=== PATIENT | female | born 1940 | race Caucasian/White ===

== ENCOUNTER 2018-09-12 15:18 | Observation (INO) | payer MEDICARE, MEDICAID ==
[~2018-09-12] VITALS: Ht 167.6 cm; Wt 58.8 kg
--- NOTE | ~2018-09-12 | DS ---
PATIENT:AYSHA MAURO :36 MEDICAL RECORD: [id number] DISCHARGE SUMMARY ADMISSION DATE: 09/12/18 DISCHARGE DATE: DISCHARGE DIAGNOSES: 1. Acute coronary syndrome, non-Q-wave myocardial infarction. 2. Coronary artery disease. 3. Percutaneous transluminal coronary angioplasty and stent to the right coronary artery this admission. HOSPITAL COURSE: Mrs. Mauro presents with unstable anginal symptomatology. Troponin was elevated [place]; however, troponin was normal here. She was sent here. She underwent cardiac catheterization revealing significant disease of the RCA, underwent successful PTCA and stent of the RCA, did not have the addition of a beta-crystal secondary to bradycardia and hypotension, was discharged home with the addition of aspirin and Plavix to her medical regimen. [facility] with [facility] 1 month. TRANSINT:[id number] Voice Confirmation ID: [id number] DOCUMENT ID: [id number] ENDER STEINBEGR MD CC: [id number] DICTATION DATE: 09/14/18 1125 INTERNET ECOMMERCE SPECIALIST: 09/15/18 0016 ADM IN [place] [id number] [place] [id number]
--- NOTE | ~2018-09-12 | OP ---
PATIENT NAME: AYSHA GODWIN MEDICAL RECORD: [id number] :38 LOCATION:D.M2 D.2116 ADMISSION DATE:09/12/18 SURGEON: ENDER STEINBERG MD DATE OF OPERATION: 09/14/2018 PROCEDURES: 1. PTCA stent RCA. 2. Left heart catheterization. 3. Selective coronary angiography. 4. Left ventriculogram. INDICATION: Acute coronary syndrome, unstable angina, elevated troponin. PROCEDURE IN DETAIL: After informed consent was obtained and after a detailed description of the risks, benefits as well as alternative therapies, the patient elected to proceed with angiogram and angioplasty. The right femoral area was prepped and draped in normal sterile fashion. Right femoral artery was cannulated via modified Seldinger technique with placement of 6-Kiswahili sheath. All catheters exchanged through this sheath. FINDINGS: Left ventriculogram was performed in standard 30-degree GOLDSTEIN view, reveals good cardiac wall motion, ejection fraction 65%. SELECTIVE CORONARY ANGIOGRAPHY: 1. Left main has no significant angiographic disease. 2. Left anterior descending has moderate irregularities, but no flow-limiting stenosis. 3. The left circumflex has moderate irregularities, but no flow-limiting stenosis. 4. Right coronary artery has 80% stenosis proximally, 90% to 95% stenosis in the mid vessel. PTCA STENT OF THE RCA: Stents used were 3.5 x 18 and 3.5 x 12, both Cobra stents. Result was 0% residual stenosis. OVERALL IMPRESSION: Successful percutaneous transluminal coronary angioplasty stent of the right coronary artery going from 90% to 95% initial stenosis to 0% residual. TRANSINT:[id number] Voice Confirmation ID: [id number] DOCUMENT ID: [id number] ENDER STEINBERG MD CC: [id number] DICTATION DATE: 09/14/18 1124 SPECIMEN BOSS: 09/14/18 1139 ADM IN [place] [id number] [place] [address]
--- NOTE | ~2018-09-12 | HEMODYNAMI ---
PATIENT:AYSHA GODWIN MEDICAL RECORD: [id number] : 36 [facility]ATION[facility] D.2116 [id number] ADMISSION DATE: 09/12/18 Generatedon:09/14/201811:32 Patient name: AYSHA GODWIN Patient #: [id number] SSN: [id number] : 1940 Date of study: 09/14/2018 Page: Of Hemodynamic Procedure Report Patient Data Patient Demographics Procedure consent was obtained First Name: AYSHA Gender: Female Last Name: TATO : 1940 Patient #: [id number] Age: 77 year(s) Race: SSN: [id number] Additional ID: [id number] Contact details [address]: [address] [place] [address] State: [place] City: [place] Zip code: [address] Admission Admission Data Admission Date: 09/12/2018 Admission Time: 16:34 Arrival Date: 09/12/2018 Arrival Time: 16:34 Admit Source: Emergency Insurance Payor: Medicare, department Medicaid Room #: D.2116 Lab Results Lab Result Date: 09/14/2018 Lab Result Time: 0:00 Biochemistry Name Units Result Min Max BUN mg/dl 19 --(----)*- 7 18 Creatinine mg/dl 0.7 --(*---)-- 0.6 1.3 CBC Name Units Result Min Max Hemoglobin g/dl 11.4 *-(----)-- 13.5 17.5 Procedure Procedure Types Cath Procedure Diagnostic Procedure LHC LHC w/Coronaries Sedation Charges Moderate Sedation up to 30 minutes PCI Procedure Coronary Stent Coronary Stent Initial Procedure Description Procedure Date Procedure Date: 09/14/2018 Procedure Start Time: 11:06 Procedure End Time: 11:23 Procedure Staff Name Function Minh Self MD Performing Physician Dagmar Srivastava RT Monitor Epifanio Youngblood RT Scrub Vero Jolley RT Scrub Jace Torres RN Nurse Indication Crescendo angina Procedure Data Cath Procedure Fluoroscopy Diagnostic fluoroscopy Total fluoroscopy Time: 4.4 time: 4.4 min min Diagnostic fluoroscopy Total fluoroscopy dose: 727 dose: 727 mGy mGy Contrast Material Contrast Material Type Amount (ml) Isovue 300 111 Entry Location Entry Primary Successful Side Size Upsize Upsize Entry Closure Succes sful Closure Location (Fr) 1 (Fr) 2 (Fr) Remarks Device Remarks Femoral Right 5 Fr 6 Fr Exoseal artery Short Estimated blood loss: 5 ml Diagnostic catheters Device Type Used For End Catheter Placement MULTIPACK Pigtail 5 Fr LV Angiography catheter MULTIPACK JL 4.0 5Fr Left Coronary catheter Angiography MULTIPACK 3DRC 5Fr Right Coronary catheter Angiography Procedure Complications No complications Procedure Medications Medication Administration Route Dosage Oxygen etCO2 Nasal cannula 2 l/min Heparin Flush Bag added to field 2 bags (1000units/500ml NS) 0.9% NaCl I.V. 100 ml/hr Lidocaine 2% added to field 20 Fentanyl I.V. 50 mcg Versed I.V. 1 mg Heparin Bolus I.V. 4000 units Integrilin (Bolus I.V. 5 ml 2mg/ml) Integrilin (Bolus wasted 5 ml 2mg/ml) Plavix P.O. 600 mg Hemodynamics Rest HGB: 11.4 (g/dl) Heart Rate: 50 (bpm) Pressure Samples Time Site Value (mmHg) Purpose Heart Use Rate(bpm) 11:09 LV -4/-8,-7 Snapshot 30 Snapshots Pre Cath Intra NCS Post Cath Vital Signs Time Heart Resp SPO2 etCO2 NIBP (mmHg) Rhythm Pain Sedation Rate (ipm) (%) (mmHg) Status Level (bpm) 11:02:15 51 16 99 0 163/56(116) NSR 0 (11) 10(A) , No pain 11:06:33 49 17 99 0 129/47(101) NSR 0 (11) 9(A) , No pain 11:10:47 50 17 97 0 118/47(77) NSR 0 (11) 9(A) , No pain 11:15:52 50 16 98 0 127/45(87) NSR 0 (11) 9(A) , No pain 11:20:04 56 17 98 0 119/43(89) NSR 0 (11) 9(A) , No pain 11:26:37 55 17 98 0 Measuring NSR 0 (11) 10(A) , No pain 11:26:40 55 17 98 0 135/55(83) NSR 0 (11) 10(A) , No pain 11:31:36 100 0 166/58(133) NSR 0 (11) 10(A) , No pain Medications Time Medication Route Dose Verified Delivered Reason Notes Effectiveness by by 11:00:23 Oxygen etCO2 2 Minh Mccormick Per physician Nasal l/min Clair Torres RN cannula 11:00:31 Heparin Flush added 2 Minh Mccormick used for Bag to bags Clair Torres RN procedure (1000units/500ml field NS) 11:00:41 0.9% NaCl I.V. 100 Minh Mccormick Per physician ml/hr Clair Torres RN 11:00:54 Lidocaine 2% added 20ml Minh Mccormick for local to vial Clair Torres RN anesthetic field 11:03:30 Fentanyl I.V. 50 Minh Mccormick for sedation mcg Clair Torres RN 11:03:36 Versed I.V. 1 mg Minh Mccormick for sedation Clair Torres RN 11:15:57 Heparin Bolus I.V. 4000 Minh Mccormick for units Clair Torres RN anticoagulation 11:16:57 Integrilin I.V. 5 ml Minh Mccormick for (Bolus 2mg/ml) Clair Torres RN anticoagulation 11:17:00 Integrilin wasted 5 ml Minh Mccormick for (Bolus 2mg/ml) Clair Torres RN anticoagulation 11:22:04 Plavix P.O. 600 Minh Mccormick for mg Clair Torres RN antiplatelet therapy Procedure Log Time Note 10:30:28 Epifanio Youngblood RT(R) sent for patient. Start room use. 10:40:36 Informed consent obtained and on chart 10:41:49 Admit Source: Emergency department 10:42:00 Arrival Date: 09/12/2018 4:34:00 PM 10:42:08 Insurance Payor : Medicare, Medicaid 10:44:42 Lab Result : BUN 19 mg/dl 10:44:42 Lab Result : Hemoglobin 11.4 g/dl 10:44:42 Lab Result : Creatinine 0.7 mg/dl 10:44:47 Diagnostic Cath Status : Elective 10:45:17 Indication : Crescendo angina 10:46:16 ACC Patient presents with Non-STEMI CCS Anginal Class 2--Slight limitation of ordinary activity. 10:46:22 ACCPatient has been prescribed/administered the following anti-anginal medication within the last 2 weeks: Long-Acting Nitrates, NAILA-Inhibitor 10:46:25 Procedure Status Urgent Heart Cath (IP). 10:46:34 Time tracking: Regular hours (M-F 7:00 - 5:00) 10:46:38 Plan of Care:Hemodynamics will remain stable., Cardiac rhythm will remain stable., Comfort level will be maintained., Respiratory function will remain adequate., Patient/ family verbilizes understanding of procedure., Procedure tolerated without complication., Recovers from procedure without complications.. 10:46:43 Patient received from Med II to [facility] 2 Alert and oriented. Tansferred to table in Supine position. 10:46:45 Warm blankets applied, and lori hugger turned on for patient comfort. 10:46:45 Correct patient and procedure confirmed by team. 10:46:46 ECG and BP/O2 sat monitors applied to patient. 10:51:33 Full Disclosure recording started 10:51:36 H&P Date Dictated: 09/14/2018 New H&P dictated by physician.. 10:51:37 Pre-procedure instructions explained to patient. 10:51:37 Pre-op teaching completed and patient verbalized understanding. 10:51:43 Family unavailable. 10:51:46 Patient NPO since Midnight. 10:51:50 Is the patient allergic to Iodine/contrast media? No. 10:51:52 Was the patient premedicated? No 10:53:20 Is patient on blood thinner?No 10:53:23 Patient diabetic? No. 10:53:27 Previous problem with sedation/anesthesia? No ? 10:53:28 Snore? No 10:53:29 Sleep apnea? No 10:53:31 Deviated septum? No 10:53:31 Opens mouth fully? Yes 10:53:32 Sticks out tongue? Yes 10:53:40 Airway obstruction? No ? 10:53:44 Dentures? Yes in tight 10:53:56 Pre procedure: right dorsailis pedis pulse Doppler 10:53:59 Pre procedure: left dorsailis pedis pulse Doppler 10:54:03 Patient pain scale 0/10 ?. 10:54:12 Lab results completed and on chart. 10:54:47 Right groin area was prepped with chlora-prep and draped in sterile fashion 10:54:48 Alarms reviewed by R. N. 10:54:49 Sharps counted by scrub and verified by R.N. 10:55:02 Physician arrived 10:55:54 IV right antecubital D/C'd due to infiltration. 10:57:40 [facility] with a 20 gauge IV catheter with 0.9% NaCl at KVO. 10:57:42 Physician arrived 10:57:43 --------ALL STOP TIME OUT------ 10:57:43 Final Timeout: patient, procedure, and site verified with staff and physician. All members of the team are in agreement. 10:57:46 Right groin site verified by team. 10:57:50 Fire Safety Assessment: A--An alcohol-based skin anteseptic being used preoperatively., C--Open oxygen or nitrous oxide is being used., D--An ESU, laser, or fiber-optic light is being used. 10:57:53 Physical assessment completed. ASA score P 2 - A patient with mild systemic disease as per Minh Self MD. 10:59:09 2) 60-89 Mildly reduced kidney function, and other findings (as for stage 1) point to kidney disease. 10:59:14 Maximum allowable contrast dose (3.7 X eGFR X 0.75)235 ml. 10:59:26 Sedation plan: IV Moderate Sedation Medication:Versed, Fentanyl 10:59:31 Use device set Femoral Dx 10:59:32 ACIST Syringe (65794) opened to sterile field. 10:59:32 Bag Decanter (2001S) opened to sterile field. 10:59:33 Medline Cath Pack ([id number]) opened to sterile field. 10:59:34 ACIST Hand Control (32036) opened to sterile field. 10:59:34 ACIST Manifold (47728) opened to sterile field. 10:59:35 DIAGNOSTIC Multipack 5Fr catheter set (DC7151) opened to sterile field. 10:59:35 Tegaderm 4 x 4 (1626W) opened to sterile field. 10:59:37 EMERALD Guide Wire (630-135) opened to sterile field. 10:59:38 SHEATH 5FR [place] (HPY231) opened to sterile field. 11:00:23 Oxygen 2 l/min etCO2 Nasal cannula was administered by Jace Torres RN; Per physician; 11:00:31 Heparin Flush Bag (1000units/500ml NS) 2 bags added to field was administered by Jace Torres RN; used for procedure; 11:00:41 0.9% NaCl 100 ml/hr I.V. was administered by Jace Torres RN; Per physician; 11:00:54 Lidocaine 2% 20ml vial added to field was administered by Jace Torres RN; for local anesthetic; 11:01:06 Vital chart was started 11:03:30 Fentanyl 50 mcg I.V. was administered by Jace Torres RN; for sedation; 11:03:36 Versed 1 mg I.V. was administered by Jace Torres RN; for sedation; 11:05:49 Procedure started. 11:06:23 Local anesthetic to right femoral artery with Lidocaine 2% by Minh Self MD.INITIAL ACCESS ONLY 11:06:33 A 5 Fr sheath was inserted into the Right Femoral artery 11:07:55 Baseline sample Acquired. 11:08:09 A MULTIPACK Pigtail 5 Fr catheter was advanced over the wire and used for LV Angiography. 11:09:30 LV hemodynamics recorded. 11:09:32 LV gram done using GOLDSTEIN 11:09:35 Injector settings: Ml/sec: 5, Volume: 15, 11:09:42 EF : 65 % 11:09:53 Catheter removed. 11:09:58 A MULTIPACK JL 4.0 5Fr catheter was advanced over the wire and used for Left Coronary Angiography. 11:10:35 LCA angiography performed. 11:10:38 Injector settings: Ml/sec: 3, Volume: 6, 11:11:18 Catheter removed. 11:11:31 A MULTIPACK 3DRC 5Fr catheter was advanced over the wire and used for Right Coronary Angiography. 11:11:47 RCA angiography performed. 11:11:50 Injector settings: Ml/sec: 3, Volume: 6, 11:12:08 Catheter removed. 11:13:53 GUIDE 6FR AR 2.0 SH catheter (SE1CV6YY) opened to sterile field. 11:13:54 SHEATH 6FR [place] (FZJ608) opened to sterile field. 11:13:55 INFLATOR Merit BasixCompak (ZH7198) opened to sterile field. 11:13:56 CHOICE PT Extra Support 182cm wire ([id number]) opened to sterile field. 11:14:00 Pre PCI Site: [place] mRCA has 90% stenosis. 11:14:00 Post PCI Site: [place] pRCA has 80% stenosis. 11:14:03 Proceeding to intervention. 11:14:04 ACC Pre-intervention GLENNA Flow is 3. 11:14:15 Sheath upsized to a 6 Fr Short. 11:14:25 6 Fr ar 2 sh guide catheter was inserted over the wire 11:14:30 choice pt wire advanced. 11:14:32 Wire advanced across lesion. 11:15:57 Heparin Bolus 4000 units I.V. was administered by Jace Torres RN; for anticoagulation; 11:15:58 ACT drawn and resulted at 384 seconds. (normal therapeutic range 180-240 seconds). 11:16:23 Place stent Inflation Number: 1 A COBRA RX 3.5 X 18 Stent was prepped and advanced across the Mid RCA 90. The stent was deployed at 15 SUJATA for 0:10 (min:sec) . 11:16:28 Stent catheter was removed intact over wire. 11:16:57 Integrilin (Bolus 2mg/ml) 5 ml I.V. was administered by Jace Torres RN; for anticoagulation; 11:17:00 Integrilin (Bolus 2mg/ml) 5 ml wasted was administered by Jace Torres RN; for anticoagulation; 11:17:48 Place stent Inflation Number: 1 A COBRA RX 3.5 X 12 Stent was prepped and advanced across the Prox RCA 80. The stent was deployed at 15 SUJATA for 0:10 (min:sec) . 11:18:38 ACC Post-intervention GLENNA Flow is 3. 11:19:29 Stent catheter was removed intact over wire. 11:19:29 Wire removed. 11:19:30 Guide catheter removed. 11:19:37 EXOSEAL 6Fr (EX600) opened to sterile field. 11:19:47 Sheath removed intact; hemostasis achieved with Exoseal to the Right Femoral artery. 11:19:49 Procedure ended.(Physican Out) 11:22:01 Fluoroscopy time 04.40 minutes. 11:22:04 Plavix 600 mg P.O. was administered by Jace Torres RN; for antiplatelet therapy; 11:22:08 Flurop Dose total: 727 11:22:08 Fluoroscopy dose: 727 mGy 11:22:14 Dose Area Product 18478 mGy/cm. 11:22:18 Contrast amount:Isovue 300 111ml. 11:22:20 Sharps counted by scrub and verified by R.N. 11::22 Insertion/operative site no bleeding no hematoma. 11:22:25 Post-op/insertion site Right Femoral artery dressed using a 4 x 4 and Tegaderm. 11:22:28 Post right femoral artery:stable 11:22:29 Post Procedure Pulses reassessed and unchanged 11:22:32 Post procedure rhythm: unchanged. 11:22:36 Estimated blood loss: 5 ml 11::38 Post procedure instruction explained to patient.Patient verbalizes understanding. 11:22:38 Patient needs reinforcement of post procedure teaching. 11:23:00 Procedure type changed to Cath procedure, Diagnostic procedure, LHC, LHC w/Coronaries, Sedation Charges, Moderate Sedation up to 30 minutes, PCI procedure, Coronary Stent, Coronary Stent Initial 11:23:01 Procedure and supply charges have been captured, reviewed, submitted and are correct. 11:23:05 Procedure Complication : No complications 11:23:08 Vital chart was stopped 11:23:08 See physician's report for complete and final results. 11:23:11 Report given to [facility]. 11:23:14 Patient transfered to [facility] with Stretcher. 11:23:17 Procedure ended. 11:23:17 Full Disclosure recording stopped 11:23:24 ACC-PCI Only Patient was given prescriptions, or instructed by Minh Self MD to start/continue the following medications upon discharge: Plavix 11:23:26 End room use (Document Last) 11:24:48 Vital chart was started 11:28:34 FEMSTOP Gold (I82563) opened to sterile field. 11:32:19 Vital chart was stopped Intervention Summary Intervention Notes Time ActionType Lesion and Equipment Action# Pressure Duration Attributes Used 11:16:23 Place stent Mid RCA COBRA RX 1 15 00:10 3.5 X 18 Stent 11:17:48 Place stent Prox RCA COBRA RX 1 15 00:10 3.5 X 12 Stent Device Usage Item Name Manufacture Quantity Catalog Number Hospital Part Current Minimal Lot# / Charge Number Stock Stock Serial# Code ACIST Syringe Acist 1 05433 026867 036094 451256 20 (72927) Medical Systems Inc Bag Decanter Microtek 1 115620 89928 942760 5 () Medical Inc. Medline Cath Medline 1 [id number] 351612 44572 931174 5 Pack ([id number]) ACIST Hand Acist 1 35733 634588 115046 159860 5 Control Medical (51094) Systems Inc ACIST Manifold Acist 1 93588 217326 175403 972928 5 (21180) Medical Systems Inc DIAGNOSTIC Cardinal 1 BQ9604 381492 40275 182212 30 Multipack 5Fr Health catheter set (FH1585) Tegaderm 4 x 4 3M 1 1626W 516696 477799 059699 5 (1626W) EMERALD Guide Cardinal 1 502-455 456037 334429 342331 5 Wire (502-455) Health SHEATH 5FR Terumo 1 YON752 776274 924170 027372 5 [place] (EUG671) MULTIPACK Cardinal 1 688903 5 Pigtail 5 Fr Health catheter MULTIPACK JL Cardinal 1 606799 5 4.0 5Fr Health catheter MULTIPACK 3DRC Cardinal 1 695597 5 5Fr catheter Health GUIDE 6FR AR Medtronic 1 [id number] 713321 21726 162098 1 2.0 SH catheter (XX3VA2UX) SHEATH 6FR Terumo 1 WGZ031 826184 462122 574523 40 [place] (SPK940) INFLATOR Merit Merit 1 LG3560 322936 000378 421400 15 Sunrise Atelier (EV2454) CHOICE PT Brashear 1 [id number] 918319 023979 624921 5 Extra Support Scientific 182cm wire ([id number]) COBRA RX 3.5 X Celonova 1 591371 [id number] 1151685 1 9 [id number] 18 stent Biosciences () COBRA RX 3.5 X Celonova 1 032189 [id number] 718109 4 [id number] 12 stent Biosciences ([id number]) EXOSEAL 6Fr Cardinal 1 EX600 329886 506902 932404 10 (EX600) Health FEMSTOP Gold [facility] [place] 1 Z34288 795869 011903 519398 5 ([id number]) Signature Audit [place] Stage Time Signature Unsigned Intra-Procedure 09/14/2018 Dagmar Srivastava 11:32:15 AM RT(R) Signatures Performing Physician : Signature : Minh Self MD Date : Time : Monitor : Dagmar Srivastava RT Signature : Date : Time : Nurse : Jace Torres RN Signature : Date : Time : [facility] [address] [place] [id number]
--- NOTE | 2018-09-12 16:58 | NUR ---
BARBER CATH IN PLACE PATROL SUPERVISOR
[2018-09-12 17:10] VITALS: BP 174/52
--- NOTE | 2018-09-12 17:37 | NUR ---
TRANSFER FROM ER BY STRETCHER. OREINTED TO ROOM. CALL LIGHT IN REACH. WILL CONT. PLAN OF CARE.
[2018-09-12] MEDS ORDERED: LISINOPRIL20 MG PO (17:42)
[2018-09-12] MEDS ORDERED: OMEPRAZOLE20 M1 PO (17:42)
[2018-09-12] MEDS ORDERED: XANAX0.5 MG PO (17:43)
[2018-09-12] MEDS ORDERED: ALBUTEROL2.5 MG/3 M INH (17:44)
[2018-09-12 17:59] VITALS: BP 174/52; Ht 167.6 cm; Wt 58.8 kg
[2018-09-12 18:52] LABS: CKMB 1.3 U/L (0.0-3.6); CREATINE KINASE 47 UL (21-215)
[2018-09-12 18:53] LABS: TROPONIN-I < 0.017 ng/mL (0.000-0.060)
[2018-09-12 20:00] VITALS: BP 161/53
--- NOTE | 2018-09-12 21:55 | NUR ---
INITIAL ROUNDS COMPLETED AT 1910 HRS. PT DENIED ANY DISCOMFORT. ASSESSMENT COMPELTED AT 1950 HRS. VSS. PT ALERT AND ORIENTED TO PERSON, PLACE AND TIME. SIERRA. IV TO RAC SL. O2 3LNC. LUNGS DIMINISHED IN BASES BILAT. MAE. CORDOBAEY DRAINING YELLOW URINE. PM MED GIVEN. SR UP X4 PER PT'S INSISTANCE. EXPLAINED TO PT IT IS CONSIDERED A RESTRAINT. PT THEN STATED SHE WANTS ALL 4 RAILS BECAUSE IT MAKES HER FEEL SAFER. PT CURRENTLY RESTING WITH EYES CLOSED. RESP EVEN AND REGULAR. CALL LIGHT WITHIN REACH AND DOOTR OPEN PER REQUEST.
[2018-09-13] VITALS: BP 146/86
--- NOTE | 2018-09-13 00:35 | NUR ---
PT RESTING WITH EYES CLOSED. RESP EVEN AND REGULAR. SR UP X2,CALL LIGHT WITHIN REACH.
[2018-09-13 01:18] LABS: CKMB 1.4 U/L (0.0-3.6); CREATINE KINASE 45 UL (21-215)
[2018-09-13 01:19] LABS: TROPONIN-I < 0.017 ng/mL (0.000-0.060)
--- NOTE | 2018-09-13 02:05 | NUR ---
PT RESTING WITH EYES CLOSED. RESP EVEN AND REGULAR. SR UP X2, CALL LIGHT WITHIN REACH.
[2018-09-13 04:00] VITALS: BP 110/41
--- NOTE | 2018-09-13 04:32 | NUR ---
PT RESTING WITH EYES CLOSED. RESP EVEN AND REGULAR. SR UP X2, CALL LIGHT WITHIN REACH AND FAMILY AT BEDSIDE.
--- NOTE | 2018-09-13 05:51 | NUR ---
VSS THROUGHOUT NIGHT. SB PER CM. NO C/O CP SINCE MORPHINE ADMINISTRATION. NEEDS MET; WILL CONTINUE TO MONITOR.
--- NOTE | 2018-09-13 07:15 | NUR ---
RECEIVED PT IN BED EYES CLOSED RESP UNLABORED SKIN W/D /COLOOR WNL NAD NOTED WILL CONTINUE TO MONITOR
[2018-09-13 07:38] LABS: CKMB 0.5 U/L (0.0-3.6); CREATINE KINASE 18 UL (21-215)
[2018-09-13 07:39] LABS: TROPONIN-I < 0.017 ng/mL (0.000-0.060)
[2018-09-13 09:42] VITALS: BP 101/65
[2018-09-13] MEDS ORDERED: CELEXA20 MG PO (16:31)
[2018-09-13 20:00] VITALS: BP 191/55
[2018-09-14] VITALS: BP 164/52
[2018-09-14 04:00] VITALS: BP 145/45
[2018-09-14 05:49] LABS: CALC OSMOLALITY 268 mosm/kg (275-300); CALCIUM 8.5 mg/dL (8.5-10.1); CARBON DIOXIDE 39.7 mmol/L (21.0-32.0); CHLORIDE - SERUM 94 mmol/L (98-107); CREATININE - SERUM 0.7 mg/dL (0.6-1.3); GLUCOSE 84 mg/dL (74-106); POTASSIUM - SERUM 4.1 mmol/L (3.5-5.1); SODIUM 134 mmol/L (136-145); UREA NITROGEN 19 mg/dL (7-18); eGFR NON AFRICAN AMERICAN 85 mL/min (90-120)
[2018-09-14 06:44] LABS: BASOPHILS 0.4 % (0-2); EOSINOPHILS 5.5 % (0-7); HEMATOCRIT 33.8 % (36.0-48.0); HEMOGLOBIN 11.4 g/dL (12-16); IMMATURE GRANULOCYTES 0.3 % (0-5); LYMPHOCYTES 27.4 % (15-50); MCH 29.7 pg (26.0-34.0); MCHC 33.7 g/dL (31.0-37.0); MEAN PLATELET VOLUME 10.1 fL (7.4-10.4); MONOCYTES 9.5 % (2-11); NEUTROPHILS 56.9 % (40-80); PLATELET COUNT 190 10x3/uL (130-400); RBC 3.84 10x6/uL (4.00-5.40); RDW 12.5 % (11.5-14.5)
[2018-09-14 09:02] VITALS: BP 101/71
--- NOTE | 2018-09-14 09:53 | HP ---
PATIENT: AYSHA MAURO MEDICAL RECORD: [id number] ACCOUNT: [id number] LOCATION:[address] : 36 ADMISSION DATE: 09/12/18 PCP: No PCP HISTORY AND PHYSICAL EXAMINATION DIAGNOSES: 1. Non-Q-wave myocardial infarction. 2. Hypertension. 3. Smoking history. 4. Chronic obstructive pulmonary disease. 5. Gastroesophageal reflux disease. HISTORY OF PRESENT ILLNESS: Mrs. Mauro presented to be [facility] with 2 days of increasing chest discomfort. Her troponin was positive. She is sent here for a higher level of care. She has continued to have episodes of chest discomfort. Her heart rates in the 50s; and systolic blood pressure is 110. She has NAILA inhibitor as well as nitrates due to the low heart rate and blood pressure. No other medical therapy can be given at this time since she is at maximal medical therapy and continues to have symptomatology. PHYSICAL EXAMINATION: GENERAL APPEARANCE: Well-nourished, well-developed, appears stated age. Level of distress, comfortable. PSYCHIATRIC: Mental status, alert, normal affect. Orientation, oriented to time, place and person. EYES: Lids and conjunctiva, noninjected. No discharge, no pallor. ENT: Lips, teeth, gums, normal dentition. Oropharynx, no cyanosis, no pallor. NECK: Carotid arteries, bilateral normal upstroke, no bruits, no thrills. JUGULAR VEINS: No jugular venous pressure or distention. CERVICAL LYMPH NODES: Nontender, nonenlarged. THYROID: Not enlarged. Nontender. No nodules. LUNGS: Respiratory effort, unlabored. CHEST: Normal curvature. No thoracic deformity. No chest wall tenderness. Percussion, resonant. Auscultation, clear. No wheezes, no rales, no rhonchi. CARDIOVASCULAR: Precordial exam, nondisplaced. No heaves or pericardial thrills. Rate and rhythm, regular. Heart sounds, normal S1, normal S2. No S3, no gallop, no rub. Systolic murmur, not heard. Diastolic murmur, not heard. EXTREMITIES: No cyanosis, no edema. Peripheral pulses, full and equal in all extremities, except as noted. No bruits appreciated. ABDOMEN: Soft, nondistended. Normal aorta. No bruit. Nontender. No masses. Liver, nontender, no hepatomegaly. Spleen, nontender, no splenomegaly. MUSCULOSKELETAL: No joint tenderness. No joint swelling. No erythema. NEUROLOGICAL: Normal gait, normal strength, normal tone. SKIN: Warm and dry. OVERALL IMPRESSION: Continued anginal symptomatology with maximal medical therapy for her heart rate and blood pressure with a positive troponin, most likely she does have hemodynamically significant coronary artery disease. We will proceed with coronary angiography. Further care depends upon the findings of the angiography. TRANSINT:[id number] Voice Confirmation ID: [id number] DOCUMENT ID: [id number] HISTORY AND PHYSICAL [id number] AYSHA MAURO, ENDER THAO at 0953 CC: [id number] DICTATION DATE: 09/13/18809 SECURITY DISPATCHER: 09/13/18 0833 ADM IN [place] [address] [place] [address]
--- NOTE | 2018-09-14 10:42 | NUR ---
PT TO FIELD AIDE VIA BED WITH STAFF
--- NOTE | 2018-09-14 11:45 | NUR ---
RECEIVED PT BACK FROM [facility] VIA BED VSS LAYNE De La Rosa/LOUISE/I TO RT GROIN WITH FEMSTOP INTACT PPP X4 RESP UNLABORED WILL CONTINUE TO MONITIR
[2018-09-14 13:07] VITALS: BP 165/65
--- NOTE | 2018-09-14 14:01 | NUR ---
PER PATIENT REQUEST, I [facility]ED [facility] FOR [facility] NAME. [facility] AT [phone], SPOKE WITH JARED PHARMACIST FOR PLAVIX 75 MG #30 WITH ONE REFILL. TAKE ONE DAILY. I ALSO CALLED [facility] TO SEE HOW PATIENT IS TO RETURN THERE. 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 AWAITING CALL BACK. THIS IS PASSED TO SARAH BETH WITH [facility].
[2018-09-14] MEDS ORDERED: PLAVIX75 MG PO (14:10)
--- NOTE | 2018-09-14 14:28 | NUR ---
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
[2018-09-14 20:00] VITALS: BP 158/85
[2018-09-15 01:05] VITALS: BP 137/69
[2018-09-15 05:36] VITALS: BP 145/60
--- NOTE | 2018-09-15 06:33 | NUR ---
BARBER CATHETER REMOVED.
[2018-09-15 08:00] VITALS: BP 133/41
--- NOTE | 2018-09-15 09:46 | NUR ---
PRESSURE DRSG TO RIGHT GROIN DCD AND REPLACE WITH BANDAID. IV AND TELEMETRY DCD. DC PLANS GIVEN. UNDERSTANDING VOICED.
--- NOTE | 2018-09-15 09:54 | NUR ---
REPORT CALLED TO [facility]. TRANSPORTATION ON THE WAY.
--- NOTE | 2018-09-15 11:43 | MORECARE ---
CASE MANAGEMENT DISCHARGE SUMMARY PATIENT: AYSHA GODWIN UNIT: [id number] ADM DATE: 09/12/18 AGE: 77 : 38 SEX: F ROOM/BED: D.8916 AUTHOR: ROHINI,DOC PHYSICIAN: REFERRING PHYSICIAN: ENDER STEINBERG MD DATE OF SERVICE: 09/15/18 Discharge Plan Patient Name: AYSHA GODWIN Facility: [facility]:[place] : 1940 Planned Disposition: [facility] Facility Anticipated Discharge Date: 09/15/18 Discharge Date: Expected LOS: 3 Initial Reviewer: [email or web address] Initial Review Date: 09/15/2018 Generated: 09/15/18 12:43 pm DCPIA - Discharge Planning Initial Assessment Updated by [email or web address]: Britton Rodriguez on 09/15/18 11:41 am * Is the patient Alert and Oriented? Yes * How many steps to enter\exit or inside your home? NONE * PCP DR. PAOLA PRIETO * Pharmacy [facility] AT [phone], * Preadmission Environment [facility] * Facility Name [facility] * ADLs Partial Dependent * Partial ADLs (Assistance needed) Ambulation Bathing Medication Management Transfers * Equipment Other * Other Equipment ALL MEDICAL EQUIPMENT PROVIDED BY FACILITY * List name and contact numbers for known caregivers / representatives who currently or will assist patient after discharge: [facility], [facility], * Verbal permission to speak to the caregivers and representatives has been obtained from the patient. Yes * Community resources currently utilized None * Please name any agencies selected above. NONE * Additional services required to return to the preadmission environment? No * Can the patient safely return to the preadmission environment? Yes * Has this patient been hospitalized within the prior 30 days at any hospital? No External Providers External Provider: [facility] [place] Next Contact Date: 09/15/2018 Service Request Date: Service Type: Resolution: Reviewer: Comments: Coverage Notice Reviewer: [email or web address] Dionna Linh Leodan Notice Issued Date-Time: 09/13/2018 15:33 Notice Type: Medicare Outpatient Observation Notice Notice Delivered To: Patient Relationship to Patient: Self Volleyball Player Name: Delivery Method: HAND - Hand Delivered Ellie Days: Prior Verbal Notification: Recipient Understood Notice: Yes Recipient Signature: Yes Med Rec Note Co-signed by Attending: Coverage Notice Comment: Patient Name: AYSHA GODWIN Page [id number] at 1143 All edits/amendments must be made on the electronic document DICTATION DATE: 09/15/18 1143 TELECOMMUNICATIONS OFFICER: JAMEEL 09/15/18 1143 RPT#: [id number] DC DATE: STATUS: [facility] [address] [place] [address] END OF REPORT
--- NOTE | 2018-09-15 12:06 | MORECARE ---
CASE MANAGEMENT DISCHARGE SUMMARY PATIENT: AYSHA GODWIN UNIT: [id number] ADM DATE: 09/12/18 AGE: 77 : 38 SEX: F ROOM/BED: D.7441 AUTHOR: ROHINI,DOC PHYSICIAN: REFERRING PHYSICIAN: ENDER STEINBERG MD DATE OF SERVICE: 09/15/18 Discharge Plan Patient Name: AYSHA GODWIN Facility: [facility]:[place] : 1940 Planned Disposition: Alf Facility Anticipated Discharge Date: 09/15/18 Discharge Date: Expected LOS: 3 Initial Reviewer: [email or web address] Initial Review Date: 09/15/2018 Generated: 09/15/18 1:06 pm Comments DCP- Discharge Planning Updated by [email or web address]: Britton Rodriguez on 09/15/18 11:[address] Patient Name: AYSHA GODWIN Admission Status: ER Accout number: [id number] Admission Date: 09-12-2018 : 1940 Admission Diagnosis: Attending: LISETH STEINBERG Current LOS: 3 Anticipated DC Date: 09-15-2018 Planned Disposition: Alf Facility Primary Insurance: [facility] MEDICARE SOLUTIONS PLANNED EXTERNAL PROVIDER: [facility], MEDICARE SKILLED BED Discharge Planning Comments: CM RECEIVED REQUEST FROM BEDSIDE NURSE TO FIND OUT WHAT TIME THE CARE HOME WAS GOING TO [facility]ADE FILER PT TODAY. CM MET WITH PT IN ROOM TO DISCUSS DISCHARGE PLANNING AND NEEDS. PT REPORTS SHE LIVES AT [facility] [place] AND WILL RETURN THERE TODAY. PT REPORTS ABILITY TO RIDE IN TRANSPORT VAN. PT DENIES DISCHARGE NEEDS. CM CALLED [facility], , SPOKE TO GISELA AT ABOUT 0945 AM, GISELA REPORTED THAT PT IS IN [facility] AND THEY PLAN TO SKILL PT BACK IN WITH INSURANCE APPROVAL. 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 THEY NEED NURSE REPORT CALLED TO NURSE JEROME. CM NOTIFIED BEDSIDE NURSE AND PT IN ROOM. CM FAXED HOSPITAL AND DISCHARGE INFORMATION TO [facility] AT [phone]. Field Mechanic/Site Lead: Britton Rodriguez DCPIA - Discharge Planning Initial Assessment Updated by [email or web address]: Britton Rodriguez on 09/15/18 11:41 am * Is the patient Alert and Oriented? Yes * How many steps to enter\exit or inside your home? NONE * PCP DR. PAOLA PRIETO * Pharmacy [facility] AT [phone], * Preadmission Environment Records Specialist [facility] * Facility Name [facility] * ADLs Partial Dependent * Partial ADLs (Assistance needed) Ambulation Bathing Medication Management Transfers * Equipment Other * Other Equipment ALL MEDICAL EQUIPMENT PROVIDED BY FACILITY * List name and contact numbers for known caregivers / representatives who currently or will assist patient after discharge: [facility], * Verbal permission to speak to the caregivers and representatives has been obtained from the patient. Yes * Community resources currently utilized None * Please name any agencies selected above. NONE * Additional services required to return to the preadmission environment? No * Can the patient safely return to the preadmission environment? Yes * Has this patient been hospitalized within the prior 30 days at any hospital? No Coverage Notice Reviewer: [email or web address] Dionna Melton [place] Notice Issued Date-Time: 09/13/2018 15:33 Notice Type: Medicare Outpatient Observation Notice Notice Delivered To: Patient Relationship to Patient: Self Panelboard Operator Name: Delivery Method: HAND - Hand Delivered Ellie Days: Prior Verbal Notification: Recipient Understood Notice: Yes Recipient Signature: Yes Med Rec Note Co-signed by Attending: Coverage Notice Comment: Last DP export: 09/15/18 10:43 am Patient Name: AYSHA GODWIN Page [id number] at 1206 All edits/amendments must be made on the electronic document DICTATION DATE: 09/15/18 1205 PROJECT MANAGER ENTERTAINMENT AND MEDIA: JAMEEL 09/15/18 1205 RPT#: [id number] DC DATE: STATUS: ADM IN [facility] [address] [place] [address] END OF REPORT
--- NOTE | 2018-09-15 12:13 | NUR ---
[facility] BY [facility]
== END 2018-09-15 12:13 | disposition home or self-care (01) ==
LOC: D.ER 15:18 → D.M2 16:34 → OBSVTIME 16:34 → D.M2 16:34
PROVIDERS: Emergency Medicine; ADMIT Internal Medicine Interventional Cardiology; ATTEND Internal Medicine Interventional Cardiology
DX: I21.4 Non-ST elevation (NSTEMI) myocardial infarction (principal); I10 Essential (primary) hypertension; J44.9 Chronic obstructive pulmonary disease, unspecified; K21.9 Gastro-esophageal reflux disease without esophagitis; I24.9 Acute ischemic heart disease, unspecified; I25.110 Atherosclerotic heart disease of native coronary artery with unstable angina pectoris